=== PATIENT | male | born 1960 | race Two or more races ===

== ENCOUNTER 2023-01-14 10:55 | Emergency (ER) | payer OTHER ==
[~2023-01-14] VITALS: Ht 177.8 cm; Wt 89.4 kg
[2023-01-14] MEDS ORDERED: COZAAR50 MG PO (11:35)
[2023-01-14] MEDS ORDERED: KETO10TA2 PO (13:40)
== END 2023-01-14 14:18 | disposition home or self-care (01) ==
LOC: ER 10:55
DX: M25.561 Pain in right knee (principal)